=== PATIENT | male | born 1995 | race African-American/Black ===

== ENCOUNTER 2016-11-22 20:46 | Emergency (ER) | payer BC, OTHER ==
[~2016-11-22] VITALS: Ht 180.3 cm; Wt 61.2 kg
[~2016-11-22 20:46] MED LIST: ALBUTEROL2.5 MG/0.1 INH; FLEXERIL PO; NAPROSYN500 MG PO
[2016-11-22] MEDS ORDERED: NOHOMEMEDICATIONS (22:05)
[2016-11-22 22:20] LABS: ABSOLUTE NEUTROPHILS 3.2 thou/uL (1.4-8.2); BASOPHILS 0.7 % (0.0-2.0); EOSINOPHILS 1.2 % (0.0-3.0); HEMATOCRIT 43.8 % (42.0-52.0); HEMOGLOBIN 14.7 gm/dL (14.0-18.0); LYMPHOCYTES 45.2 % (24.0-44.0); MCH 29.6 pg (26.0-34.0); MCHC 33.7 % (28.0-37.0); MCV 87.9 fL (80.0-100.0); MONOCYTES 9.7 % (1.0-8.0); PLATELET COUNT 174 thou/uL (150-400); POLYS 43.2 % (36.0-66.0); RBC 4.98 mil/uL (4.50-6.00); WBC 7.4 thou/uL (4.0-11.0)
[2016-11-22 22:21] LABS: MANUAL DIFF NO
[2016-11-22 22:30] LABS: CALCIUM 9.1 mg/dL (8.5-10.1); CREATININE 1.1 mg/dL (0.6-1.3); POTASSIUM 3.7 mmol/L (3.5-5.1)
[2016-11-22 22:54] VITALS: BP 112/59
== END 2016-11-22 23:00 | disposition home or self-care (01) ==
LOC: ER 20:46
PROVIDERS: Emergency Medicine
DX: R20.2 Paresthesia of skin (principal); K21.9 Gastro-esophageal reflux disease without esophagitis; F10.99 Alcohol use, unspecified with unspecified alcohol-induced disorder